=== PATIENT | female | born 1945 | race Caucasian/White ===

== ENCOUNTER → 2023-08-21 08:18 | Outpatient (REF) | payer MEDICARE, OTHER, SELFPAY ==
[2023-08-21 08:56] LABS: % Basophils 0.6 % (0-2); % Immature Granulocytes 0.4 % (0-0.5); % Lymphocytes 25.7 % (20.5-51.1); % Monocytes 9.3 % (1.7-9.3); Absolute Eosinophils 0.2 10^3/uL (0-0.7); Absolute Lymphocytes 1.4 10^3/uL (1.2-3.4); Absolute Monocytes 0.5 10^3/uL (0.1-0.6); Absolute Neutrophils 3.2 10^3/uL (1.4-6.5); Hemoglobin 14.2 g/dL (12.0-16.0); Mean Corp Hgb Conc. 34.6 g/dL (33.0-37.0); Mean Corpuscular Hgb 28.9 pg (27.0-31.0); Mean Corpuscular Volume 83.3 fL (81.0-99.0); Mean Platelet Volume 9.7 fL (7.4-10.4); Nucleated Red Blood Cells % 0 %; Platelet Count 285 10^3/uL (130-400); Red Blood Cell Count 4.92 10^6/uL (4.20-5.40); Red Cell Dist. Width 13.4 % (11.5-14.5); White Blood Cell Count 5.3 10^3/uL (4.8-10.8)
[2023-08-21 09:32] LABS: ALT (SGPT) 24 U/L (0-35); AST (SGOT) 28 U/L (14-36); Albumin 4.5 g/dl (3.5-5.0); Alkaline Phosphatase 66 U/L (38-126); Blood Urea Nitrogen 12 mg/dl (7-17); Calcium 9.5 mg/dl (8.4-10.2); Carbon Dioxide 24 mmol/L (22-30); Chloride 105 mmol/L (98-107); Glucose 97 mg/dl (70-99); HDL Cholesterol 96 mg/dl; LDL Cholesterol, Calculated 90 mg/dl; Sodium 137 mmol/L (135-145); Total Bilirubin 0.5 mg/dl (0.2-1.3); Total Cholesterol 202 mg/dl (50-199); Triglyceride 83 mg/dl (10-149); Very Low Density Lipoprotein 16 mg/dl (0-30); eGFR > 60.00
[2023-08-21 11:47] LABS: Glycohemoglobin (HgbA1c) 5.3 % (4.0-5.6)
== END ==
LOC: REG 08:18
PROVIDERS: ATTENDING PHYSICIAN Internal Medicine Cardiovascular Disease; FAMILY PHYSICIAN Nurse Practitioner Adult Health
DX: Z13.220 Encounter for screening for lipoid disorders (principal); K21.9 Gastro-esophageal reflux disease without esophagitis; R73.9 Hyperglycemia, unspecified; E87.1 Hypo-osmolality and hyponatremia; E78.00 Pure hypercholesterolemia, unspecified
CPT/HCPCS: 36415; 80053; 80061; 83036; 85025

== ENCOUNTER → 2023-08-26 13:52 | Outpatient (REF) | payer MEDICARE, OTHER, SELFPAY ==
[2023-08-26 14:14] LABS: % Basophils 0.5 % (0-2); % Eosinophils 2.4 % (0-6); % Immature Granulocytes 0.2 % (0-0.5); % Lymphocytes 23.9 % (20.5-51.1); % Monocytes 12.9 % (1.7-9.3); % Neutrophils 60.1 % (42.2-75.2); Absolute Eosinophils 0.2 10^3/uL (0-0.7); Absolute Lymphocytes 1.5 10^3/uL (1.2-3.4); Absolute Monocytes 0.8 10^3/uL (0.1-0.6); Absolute Neutrophils 3.7 10^3/uL (1.4-6.5); Hematocrit 40.8 % (37.0-47.0); Hemoglobin 13.8 g/dL (12.0-16.0); Mean Corp Hgb Conc. 33.8 g/dL (33.0-37.0); Mean Corpuscular Hgb 29.1 pg (27.0-31.0); Mean Corpuscular Volume 85.9 fL (81.0-99.0); Mean Platelet Volume 9.2 fL (7.4-10.4); Nucleated Red Blood Cells % 0 %; Platelet Count 304 10^3/uL (130-400); Red Blood Cell Count 4.75 10^6/uL (4.20-5.40); Red Cell Dist. Width 13.5 % (11.5-14.5); White Blood Cell Count 6.2 10^3/uL (4.8-10.8)
[2023-08-26 14:24] LABS: Erythrocyte Sed Rate 11 mm/hour (0-20)
[2023-08-26 14:40] LABS: ALT (SGPT) 22 U/L (0-35); AST (SGOT) 24 U/L (14-36); Albumin 4.3 g/dl (3.5-5.0); Alkaline Phosphatase 65 U/L (38-126); Blood Urea Nitrogen 19 mg/dl (7-17); Calcium 8.9 mg/dl (8.4-10.2); Carbon Dioxide 24 mmol/L (22-30); Chloride 103 mmol/L (98-107); Glucose 106 mg/dl (70-99); Magnesium 1.8 mg/dl (1.6-2.3); Potassium 3.5 mmol/L (3.5-5.1); Sodium 133 mmol/L (135-145); Total Bilirubin 0.3 mg/dl (0.2-1.3); Total Protein 6.6 g/dl (6.3-8.2); eGFR > 60.00
[2023-08-26 14:42] LABS: C-Reactive Protein < 5.00 mg/L (0.0-10.00)
[2023-08-26 15:11] LABS: TSH Reflex To Free T4 1.12 uIU/ml (0.47-4.68)
[2023-08-26 15:46] LABS: Folate 19.2 ng/ml (2.76-20)
[2023-08-26 17:48] LABS: Vitamin B12 961 pg/ml (239-931)
[2023-08-31 08:59] LABS: Vitamin B1, Whole Blood 143 nmol/L (70-180)
== END ==
LOC: REG 13:52
PROVIDERS: ATTENDING PHYSICIAN Nurse Practitioner Adult Health
DX: R41.3 Other amnesia (principal)
CPT/HCPCS: 36415; 80053; 82607; 82746; 83735; 84100; 84425; 84443; 85025; 85652; 86140

== ENCOUNTER → 2023-08-28 13:45 | Outpatient (REF) | payer MEDICARE, OTHER, SELFPAY ==
[2023-09-02 18:11] LABS: Calprotectin, Fecal 330 ug/g (<=49)
== END ==
LOC: REG 13:45
PROVIDERS: ATTENDING PHYSICIAN Internal Medicine
DX: R19.7 Diarrhea, unspecified (principal); K51.50 Left sided colitis without complications
CPT/HCPCS: 83993; 87045; 87046; 87077; 87324; 87427; 87449

== ENCOUNTER → 2023-09-26 10:29 | Outpatient (REF) | payer MEDICARE, OTHER, SELFPAY ==
[2023-09-26 12:30] LABS: Total Iron Binding Capacity 251 ug/dl (265-497)
[2023-09-26 13:00] LABS: Hepatitis B Surface Antigen Negative (Negative)
[2023-09-26 13:18] LABS: Hepatitis B Core Ab, Total Negative (Negative)
[2023-09-29 00:02] LABS: Vitamin D 1,25 Dihydroxy 62.4 pg/mL (19.9-79.3)
== END ==
LOC: REG 10:29
PROVIDERS: ATTENDING PHYSICIAN Internal Medicine; FAMILY PHYSICIAN Family Medicine
DX: K51.50 Left sided colitis without complications (principal)
CPT/HCPCS: 36415; 82652; 82728; 83550; 86704; 87340

== ENCOUNTER → 2023-09-29 14:25 | Outpatient (REF) | payer MEDICARE, OTHER, SELFPAY | LOC: PAVMRI 14:25 | PROVIDERS: ATTENDING PHYSICIAN Nurse Practitioner Adult Health | DX: R41.3 Other amnesia (principal); R26.89 Other abnormalities of gait and mobility | CPT/HCPCS: 70551 ==

== ENCOUNTER → 2023-10-07 15:06 | Outpatient (REF) | payer MEDICARE, OTHER, SELFPAY | LOC: WDC 15:06 | PROVIDERS: ATTENDING PHYSICIAN Nurse Practitioner Adult Health | DX: Z12.31 Encounter for screening mammogram for malignant neoplasm of breast (principal) | CPT/HCPCS: 77063; 77067 ==

== ENCOUNTER → 2023-11-10 12:12 | Outpatient (REF) | payer MEDICARE, OTHER, SELFPAY ==
[2023-11-10 13:31] LABS: ALT (SGPT) 16 U/L (0-35); AST (SGOT) 23 U/L (14-36); Albumin 4.6 g/dl (3.5-5.0); Alkaline Phosphatase 65 U/L (38-126); Blood Urea Nitrogen 19 mg/dl (7-17); Calcium 9.7 mg/dl (8.4-10.2); Carbon Dioxide 25 mmol/L (22-30); Chloride 98 mmol/L (98-107); Glucose 88 mg/dl (70-99); Sodium 133 mmol/L (135-145); Total Bilirubin 0.4 mg/dl (0.2-1.3); Total Protein 6.7 g/dl (6.3-8.2); eGFR > 60.00
[2023-11-10 13:46] LABS: Vitamin D, 25-OH*** 42.5 ng/mL (30-80)
== END ==
LOC: REG 12:12
PROVIDERS: ATTENDING PHYSICIAN Internal Medicine Rheumatology; FAMILY PHYSICIAN Family Medicine
DX: E55.9 Vitamin D deficiency, unspecified (principal); M81.0 Age-related osteoporosis without current pathological fracture
CPT/HCPCS: 36415; 80053; 82306

== ENCOUNTER → 2023-12-16 11:00 | Outpatient (REF) | payer MEDICARE, OTHER, SELFPAY | LOC: HWRAD 11:00 | PROVIDERS: ATTENDING PHYSICIAN Nurse Practitioner Adult Health; REFERRING PHYSICIAN Psychiatry & Neurology Neurology | DX: Z86.73 Personal history of transient ischemic attack (TIA), and cerebral infarction without residual deficits (principal); R41.3 Other amnesia; G45.9 Transient cerebral ischemic attack, unspecified | CPT/HCPCS: 93880 ==

== ENCOUNTER → 2024-02-04 15:53 | Outpatient (REF) | payer MEDICARE, OTHER, SELFPAY | LOC: RCS 15:53 | PROVIDERS: ATTENDING PHYSICIAN Nurse Practitioner Adult Health; REFERRING PHYSICIAN Psychiatry & Neurology Neurology | DX: R41.3 Other amnesia (principal); Z86.73 Personal history of transient ischemic attack (TIA), and cerebral infarction without residual deficits | CPT/HCPCS: 93306 ==

== ENCOUNTER → 2024-02-26 15:04 | Outpatient (REF) | payer MEDICARE, OTHER, SELFPAY | LOC: PAVMRI 15:04 | PROVIDERS: ATTENDING PHYSICIAN Psychiatry & Neurology Neurology; FAMILY PHYSICIAN Nurse Practitioner Adult Health | DX: M54.50 Low back pain, unspecified (principal) | CPT/HCPCS: 72148 ==

== ENCOUNTER → 2024-06-04 13:03 | Outpatient (REF) | payer MEDICARE, OTHER, SELFPAY ==
[2024-06-04 14:56] LABS: ALT (SGPT) 19 U/L (0-35); AST (SGOT) 26 U/L (14-36); Alkaline Phosphatase 55 U/L (38-126); Blood Urea Nitrogen 21 mg/dl (7-17); Calcium 9.6 mg/dl (8.4-10.2); Carbon Dioxide 24 mmol/L (22-30); Chloride 97 mmol/L (98-107); Glucose 88 mg/dl (70-99); Potassium 4.1 mmol/L (3.5-5.1); Sodium 132 mmol/L (135-145); Total Bilirubin 0.3 mg/dl (0.2-1.3); eGFR > 60.00
[2024-06-04 15:02] LABS: Albumin 4.8 g/dl (3.5-5.0)
[2024-06-04 15:07] LABS: Vitamin D, 25-OH*** 59.7 ng/mL (30-80)
== END ==
LOC: REG 13:03
PROVIDERS: ATTENDING PHYSICIAN Internal Medicine Rheumatology; FAMILY PHYSICIAN Nurse Practitioner Adult Health
DX: E55.9 Vitamin D deficiency, unspecified (principal); E87.1 Hypo-osmolality and hyponatremia; M81.0 Age-related osteoporosis without current pathological fracture
CPT/HCPCS: 36415; 80053; 82306

== ENCOUNTER → 2024-07-22 11:13 | Outpatient (REF) | payer MEDICARE, OTHER, SELFPAY ==
[2024-07-22 12:45] LABS: Erythrocyte Sed Rate 6 mm/hour (0-20)
[2024-07-22 12:49] LABS: C-Reactive Protein < 5.00 mg/L (0.0-10.00)
[2024-07-22 13:01] LABS: Total Iron Binding Capacity 265 ug/dl (265-497)
[2024-07-22 13:39] LABS: Vitamin B12 795 pg/ml (239-931)
[2024-07-22 19:17] LABS: Hepatitis B Surface Antigen Negative (Negative)
[2024-07-22 19:35] LABS: Hepatitis B Core Ab, Total Negative (Negative); Hepatitis B Surface Antibody Negative
== END ==
LOC: REG 11:13
PROVIDERS: ATTENDING PHYSICIAN Internal Medicine; FAMILY PHYSICIAN Nurse Practitioner Adult Health
DX: K51.50 Left sided colitis without complications (principal); R41.3 Other amnesia
CPT/HCPCS: 36415; 82607; 82652; 82728; 83550; 85652; 86140; 86704; 86706; 87340

== ENCOUNTER → 2024-07-27 11:55 | Outpatient (REF) | payer MEDICARE, OTHER, SELFPAY ==
[2024-07-29 19:32] LABS: Calprotectin, Fecal 179 ug/g (<=49)
== END ==
LOC: REG 11:55
PROVIDERS: ATTENDING PHYSICIAN Internal Medicine; FAMILY PHYSICIAN Nurse Practitioner Adult Health
DX: K51.50 Left sided colitis without complications (principal)
CPT/HCPCS: 83993

== ENCOUNTER → 2024-08-24 13:40 | Outpatient (REF) | payer MEDICARE, OTHER, SELFPAY ==
[2024-08-24 14:27] LABS: % Basophils 0.3 % (0-2); % Eosinophils 1.7 % (0-6); % Immature Granulocytes 0.3 % (0-0.5); % Lymphocytes 23.2 % (20.5-51.1); % Monocytes 8.8 % (1.7-9.3); % Neutrophils 65.7 % (42.2-75.2); Absolute Eosinophils 0.1 10^3/uL (0-0.7); Absolute Lymphocytes 1.5 10^3/uL (1.2-3.4); Absolute Monocytes 0.6 10^3/uL (0.1-0.6); Absolute Neutrophils 4.2 10^3/uL (1.4-6.5); Hematocrit 39.1 % (37.0-47.0); Hemoglobin 13.3 g/dL (12.0-16.0); Mean Corpuscular Volume 88.3 fL (81.0-99.0); Mean Platelet Volume 9.7 fL (7.4-10.4); Nucleated Red Blood Cells % 0 %; Platelet Count 266 10^3/uL (130-400); Red Blood Cell Count 4.43 10^6/uL (4.20-5.40); Red Cell Dist. Width 13.2 % (11.5-14.5); White Blood Cell Count 6.4 10^3/uL (4.8-10.8)
[2024-08-24 14:46] LABS: ALT (SGPT) 18 U/L (0-35); AST (SGOT) 24 U/L (14-36); Albumin 4.2 g/dl (3.5-5.0); Alkaline Phosphatase 63 U/L (38-126); Blood Urea Nitrogen 20 mg/dl (7-17); Calcium 9.6 mg/dl (8.4-10.2); Carbon Dioxide 24 mmol/L (22-30); Chloride 101 mmol/L (98-107); Glucose 88 mg/dl (70-99); HDL Cholesterol 82 mg/dl; LDL Cholesterol, Calculated 69 mg/dl; Potassium 4.2 mmol/L (3.5-5.1); Sodium 133 mmol/L (135-145); Total Bilirubin 0.5 mg/dl (0.2-1.3); Total Cholesterol 180 mg/dl (50-199); Total Protein 6.4 g/dl (6.3-8.2); Triglyceride 146 mg/dl (10-149); Very Low Density Lipoprotein 29 mg/dl (0-30); eGFR > 60.00
[2024-08-24 15:16] LABS: TSH Reflex To Free T4 1.56 uIU/ml (0.47-4.68)
[2024-08-25 09:19] LABS: Glycohemoglobin (HgbA1c) 5.2 % (4.0-5.6)
== END ==
LOC: REG 13:40
PROVIDERS: ATTENDING PHYSICIAN Nurse Practitioner Adult Health
DX: R53.83 Other fatigue (principal); R26.89 Other abnormalities of gait and mobility; E78.00 Pure hypercholesterolemia, unspecified; R73.9 Hyperglycemia, unspecified; R41.3 Other amnesia; E87.6 Hypokalemia
CPT/HCPCS: 36415; 80053; 80061; 83036; 84443; 85025

== ENCOUNTER 2024-09-13 06:30 | Day surgery (SDC) | payer MEDICARE, OTHER, SELFPAY | END 2024-09-13 11:16 | disposition home or self-care (01) | LOC: GI 06:30 | PROVIDERS: ATTENDING PHYSICIAN Internal Medicine | DX: Z12.11 Encounter for screening for malignant neoplasm of colon (principal); K51.50 Left sided colitis without complications; K64.9 Unspecified hemorrhoids; Q43.8 Other specified congenital malformations of intestine | CPT/HCPCS: 45380; 88305 ==

== ENCOUNTER → 2024-12-23 12:02 | Outpatient (REF) | payer MEDICARE, OTHER, SELFPAY ==
[2024-12-23 13:27] LABS: ALT (SGPT) 18 U/L (0-35); AST (SGOT) 24 U/L (14-36); Albumin 4.7 g/dl (3.5-5.0); Alkaline Phosphatase 56 U/L (38-126); Blood Urea Nitrogen 17 mg/dl (7-17); Calcium 9.2 mg/dl (8.4-10.2); Carbon Dioxide 23 mmol/L (22-30); Chloride 101 mmol/L (98-107); Glucose 86 mg/dl (70-99); Potassium 4.5 mmol/L (3.5-5.1); Sodium 132 mmol/L (135-145); Total Protein 6.9 g/dl (6.3-8.2); eGFR > 60.00
== END ==
LOC: REG 12:02
PROVIDERS: ATTENDING PHYSICIAN Physician Assistant; FAMILY PHYSICIAN Family Medicine
DX: M81.0 Age-related osteoporosis without current pathological fracture (principal); R26.89 Other abnormalities of gait and mobility; Z51.81 Encounter for therapeutic drug level monitoring
CPT/HCPCS: 36415; 80053

== ENCOUNTER → 2025-01-27 12:41 | Outpatient (REF) | payer MEDICARE, OTHER, SELFPAY | LOC: RAD 12:41 | PROVIDERS: ATTENDING PHYSICIAN Nurse Practitioner Adult Health | DX: Z78.0 Asymptomatic menopausal state (principal) | CPT/HCPCS: 77080 ==

== ENCOUNTER 2025-03-07 06:54 | Inpatient (IN) | payer MEDICARE, OTHER, SELFPAY ==
[2025-02-18 13:52] LABS: Hematocrit 38.7 % (37.0-47.0); Hemoglobin 13.2 g/dL (12.0-16.0); Mean Corp Hgb Conc. 34.1 g/dL (33.0-37.0); Mean Corpuscular Volume 87.2 fL (81.0-99.0); Platelet Count 282 10^3/uL (130-400); Red Cell Dist. Width 13.5 % (11.5-14.5)
[2025-02-18 14:28] LABS: ALT (SGPT) 18 U/L (0-35); AST (SGOT) 22 U/L (14-36); Albumin 4.5 g/dl (3.5-5.0); Alkaline Phosphatase 52 U/L (38-126); Blood Urea Nitrogen 23 mg/dl (7-17); Calcium 9.5 mg/dl (8.4-10.2); Carbon Dioxide 25 mmol/L (22-30); Chloride 103 mmol/L (98-107); Glucose 99 mg/dl (70-99); Potassium 4.4 mmol/L (3.5-5.1); Sodium 134 mmol/L (135-145); Total Protein 6.8 g/dl (6.3-8.2); eGFR > 60.00
[2025-02-19 12:20] LABS: Glycohemoglobin (HgbA1c) 5.2 % (4.0-5.6)
[2025-02-21 13:41] VITALS: BMI 22.3
--- NOTE | 2025-02-21 14:02 | CM ---
Demographics: confirmed
Living situation: Lives alone, her friend Nathalia will be staying with her
Support Person Post Operatively: Friend, Nathalia
History of
VN: no
SNF: no
Outpatient: Patient will make appointments at [facility]
Has patient purchased required equipment: walker, hip kit
PCP: Zaina ramirez
Pharmacy: [facility]
Post Operative Discharge Plan: [facility] for two weeks and then transition to outpatient PT. CM updated [facility] Admission RN.
--- NOTE | 2025-02-21 14:08 | VNURNOTE ---
Addendum entered by Monse Lennon RN 03/08/25 10:28:
Home Health Liaison met with patient at bedside to discuss [facility] nurse/therapy, visits, schedule. Patient is agreeable and understands that visits at home will be 2-3 x per week to assess and teach medical management. Patient is aware that [facility]
will contact them for start of care after discharge from . Provided contact number for [facility].
[facility] referral accepted in [facility].
Original Note:
Chart reviewed. Scheduled for L JEREMIAH on 03/07. Rec'ed update that pt ordered VN, PT, OT x 2 weeks post-op. [facility] referral placed in [facility]. Will follow up with pt post-op.
[2025-02-28 17:32] VITALS: BMI 22.3
[2025-03-07] VITALS (17 sets, daily range): BP systolic 114–153; BP diastolic 71–108; PULSE 90; O2SAT 94; BMI 22.3
[2025-03-07] MEDS: MOBIC 15 MG PO (08:20)
[2025-03-07] MEDS: TYLENOL 650 MG PO ×4 (08:21→19:40)
[2025-03-07] MEDS: NORMOSOL-R/PLASMALYTE-A 1000 IV ×2 (08:39→17:09)
--- NOTE | 2025-03-07 09:08 | W.PN.UPDATE ---
Update Note
Progress Note Update
L hip OA s/p L JEREMIAH w/ Dr Redding 03/07/25
DVT prophylaxis - ASA as OK per GI for short term course, b/l venous foot pumps
HTN - diet controlled - monitor BP
GERD and Hiatal hernia - continue PPI therapy
Ulcerative colitis, in remission while on Entyvio - no NSAIDs
- Given her gut-selective immunosuppressant, would benefit from Cefadroxil upon d/c
Recurrent C. 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
Ambulatory dysfunction with balance difficulties - on fall precautions
Right cerebellar stroke found incidentally on brain MRI 09/2023 - start full dose ASA for DVT prevention
- Of note, daily baby ASA recommended by PCP previously
Daily alcohol - 3 beers/daily reported
- Gabapentin, Thiamine, Folic Acid added
- Consider Serax HS
- Monitor for potential s/sx of withdrawal
HLD
Diverticulosis
Tortuous colon
Benign paroxysmal positional vertigo
Restless leg syndrome
Chronic short-term memory loss
Multilevel degenerative disc disease
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
Melanoma, left upper extremity, status post excision
Basal cell carcinoma, status post excision
Depression
Anxiety
Osteoporosis
Remote history of tobacco abuse
The patient will need home PT and VN services initially upon d/c. Pt discussed w/ CM pre-operatively.
[2025-03-07] MEDS: ROXICODONE 5 MG PO (11:53)
[2025-03-07] MEDS: TYLENOL PO ×2 (12:33→23:08)
[2025-03-07] MEDS: NEURONTIN 200 MG PO ×2 (15:59→21:03)
[2025-03-07] MEDS: ASPIRIN 325 MG PO (17:47)
[2025-03-07] MEDS: ANCEF 5 IV (17:47)
[2025-03-07] MEDS: REQUIP 2 MG PO (17:47)
[2025-03-07] MEDS: EFFEXOR XR PO (19:37)
[2025-03-07] MEDS: WELLBUTRIN XL (24 hour extended release) PO (19:39)
[2025-03-07] MEDS: BACTROBAN 2% OINTMENT 1 APPLIC NASAL (19:40)
[2025-03-07] MEDS: DECADRON 4 MG PO (19:40)
[2025-03-07] MEDS: VITAMIN B1 100 MG PO (19:40)
[2025-03-07] MEDS: COLACE 100 MG PO (19:40)
[2025-03-07] MEDS: PROTONIX 40 MG PO (19:40)
[2025-03-07] MEDS: LIPITOR 10 MG PO (21:03)
[2025-03-07] MEDS: FLORASTOR 250 MG PO (21:03)
[2025-03-07] MEDS: FOLVITE 1 MG PO (21:03)
[2025-03-08] MEDS: ANCEF 5 IV (00:29)
[2025-03-08] MEDS: TYLENOL 650 MG PO ×2 (03:31→08:01)
[2025-03-08 03:56] VITALS: BP 136/77
[2025-03-08 07:54] VITALS: BP 132/75
[2025-03-08] MEDS: ROXICODONE 5 MG PO (07:59)
[2025-03-08] MEDS: VITAMIN B1 100 MG PO (08:00)
[2025-03-08] MEDS: ASPIRIN 325 MG PO (08:00)
[2025-03-08] MEDS: EFFEXOR XR 75 MG PO (08:00)
[2025-03-08] MEDS: WELLBUTRIN XL (24 hour extended release) 150 MG PO (08:00)
[2025-03-08] MEDS: FOLVITE 1 MG PO (08:00)
[2025-03-08] MEDS: VITAMIN B-12 1000 MCG PO (08:00)
[2025-03-08] MEDS: FLORASTOR 250 MG PO (08:00)
[2025-03-08] MEDS: PROTONIX 40 MG PO (08:00)
[2025-03-08] MEDS: NEURONTIN 200 MG PO (08:00)
[2025-03-08] MEDS: DECADRON 4 MG PO (08:01)
[2025-03-08] MEDS: COLACE 100 MG PO (08:01)
[2025-03-08] MEDS: BACTROBAN 2% OINTMENT 1 APPLIC NASAL (08:01)
--- NOTE | 2025-03-08 08:52 | CM ---
CM reviewed medical records. Patient given IMM. Patient for [facility] for home PT. CM updated [facility] Admission RN.
PLAN: Home with [facility].
[2025-03-08 09:15] VITALS: BP 125/71; PULSE 85; O2SAT 97
--- NOTE | 2025-03-08 09:36 | W.PN.ORTHO ---
Today's Communication / Plan
-
Await PT and OT recs.
D/c later today if remaining clinically stable.
Assessment
.
Distal Motor Intact: Yes
Dressing:
Small area of old bleeding noted on inferior end of dressing. Dressing otherwise C/D/I.
Assessment:
L hip OA s/p L JEREMIAH w/ Dr Redding 03/07/25
DVT prophylaxis - ASA as OK per GI for short term course, b/l venous foot pumps
HTN - diet controlled - BPs overall stable
GERD and Hiatal hernia - continue PPI therapy
Ulcerative colitis, in remission while on Entyvio - no NSAIDs
- Given her gut-selective immunosuppressant, would benefit from Cefadroxil upon d/c
Recurrent C. 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
Ambulatory dysfunction with balance difficulties - on fall precautions
Right cerebellar stroke found incidentally on brain MRI 09/2023 - started full dose ASA for DVT prevention
- Of note, daily baby ASA recommended by PCP previously
Daily alcohol - 3 beers/daily reported
- Gabapentin, Thiamine, Folic Acid added
- Consider Serax HS
- No s/sx of withdrawal noted
HLD
Diverticulosis
Tortuous colon
Benign paroxysmal positional vertigo
Restless leg syndrome
Chronic short-term memory loss
Multilevel degenerative disc disease
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
Melanoma, left upper extremity, status post excision
Basal cell carcinoma, status post excision
Depression
Anxiety
Osteoporosis
Remote history of tobacco abuse
The patient will need home PT and VN services initially upon d/c. Pt discussed w/ CM pre-operatively
Plan
.
Surgery / Date: L hip OA s/p L JEREMIAH w/ Dr Redding 03/07/25
DVT Prophylaxis: Aspirin
Activity:
Out of bed.
PT/OT
Discharge Plan: Home w/ VN
Subjective
.
.:
Patient resting comfortably in her bed.
L hip pain well managed w/ minimal pain medications overnight.
Denies any new significant complaints.
Eager for potential d/c today.
Vital Signs and Labs
.
Vital Signs and Labs:
Lab Results
02/18/25 13:22
02/18/25 13:22
Temp Pulse Resp BP Pulse Ox
97.6 F 84 16 132/75 97
03/08/25 07:54 03/08/25 07:54 03/08/25 07:54 03/08/25 07:54 03/08/25 07:54
Non-invasive Hgb result: 13.3
Physical Exam
-
HEENT: No pallor, cyanosis, or jaundice. Throat clear.
NECK: Supple. No JVD.
RESPIRATORY: Lungs clear to auscultation.
CVS: S1, S2 normal. RRR.� No murmur, rub or gallop.
ABDOMEN: Soft, non-tender. No distension.
EXTREMITIES: Strength equal, no calf pain with palpation/dorsiflexion. Calves soft.
--- NOTE | 2025-03-08 09:45 | W.DS.TRANS ---
DC Summary - [facility] [employer] [facility]
-
Discharge Instructions:
Sleep Apnea Risk Low
Discharge Diagnosis/Procedures L hip OA s/p L JEREMIAH w/ Dr Redding 03/07/2025
Diet Regular
Additional Diets Adequate hydration, minimize opioids, and wear
TEDs stockings to prevent low blood pressure/
dizziness.
Activity As tolerated,With Walker
Driving Restrictions Not until seen by your Dr
Bathing Restrictions OK to Shower
Other Services PT,VN
Wound Care Dressing to be removed 1 week post-surgery.
[place] to be removed at 2 week follow-up with
surgeon's office.
Instructions:
Stand-Alone Forms: Total Hip/Knee Replacement D/C
Changes to Home Medications: Yes
Discharge Medications:
DC Medications w/original date entered in [employer]
cyanocobalamin (vitamin B-12) 1,000 mcg tablet 1,000 mcg PO DAILY 06/15/19
ropinirole 2 mg tablet 2 mg PO DAILY@1730 06/15/19
simvastatin 20 mg tablet 20 mg PO HS 06/15/19
bupropion HCl 150 mg 24 hr tablet, extended release 150 mg PO DAILY 02/17/25
calcium citrate 1,000 mg PO DAILY 02/17/25
denosumab 60 mg/mL subcutaneous syringe (Prolia) 60 mg SC [id number] 02/17/25
multivitamin with [id number] 400 mcg-120 mg tablet 1 tab PO DAILY 02/17/25
omeprazole 20 mg tablet,delayed release 20 mg PO DAILY 02/17/25
venlafaxine 75 mg capsule,extended release 24 hr (Effexor XR) 75 mg PO DAILY 02/17/25
vitamin E (dl, acetate) 180 mg (400 unit) capsule 180 mg PO Q48H 02/17/25
Held on 03/08/25. Instructions: Resume on 03/14/25.
mupirocin 2 % topical ointment 1 applic intranasal BID #1 tube 02/18/25
cefadroxil 500 mg capsule 500 mg PO BID #14 caps 02/22/25
dexamethasone 4 mg tablet 4 mg PO BID Anti-inflammatory #5 tabs 02/22/25
gabapentin 300 mg capsule 300 mg PO HS neuropathic pain/sleep #10 caps 02/22/25
ondansetron HCl 4 mg tablet 4 mg PO Q6H PRN nausea and vomiting #30 tabs 02/22/25
oxycodone 5 mg tablet 5 - 10 mg (1 - 2 x 5 mg) PO Q6H PRN moderate-severe pain #30 tabs 02/22/25
Saccharomyces boulardii 250 mg capsule 250 mg PO BID #14 caps 03/08/25
acetaminophen 500 mg tablet (Acetaminophen Extra Strength) 1,000 mg (2 x 500 mg) PO Q6H #60 tabs 03/08/25
aspirin 325 mg tablet 325 mg PO DAILY #30 tabs 03/08/25
docusate sodium 100 mg capsule 100 mg PO BID #30 caps 03/08/25
sennosides 8.6 mg tablet (Roxanne-kristi) 17.2 mg (2 x 8.6 mg) PO BID PRN constipation #30 tabs 03/08/25
Home Medication Changes
cefadroxil 500 mg capsule 500 mg PO BID #14 caps 02/22/25
dexamethasone 4 mg tablet 4 mg PO BID Anti-inflammatory #5 tabs 02/22/25
gabapentin 300 mg capsule 300 mg PO HS neuropathic pain/sleep #10 caps 02/22/25
ondansetron HCl 4 mg tablet 4 mg PO Q6H PRN nausea and vomiting #30 tabs 02/22/25
oxycodone 5 mg tablet 5 - 10 mg (1 - 2 x 5 mg) PO Q6H PRN moderate-severe pain #30 tabs 02/22/25
Saccharomyces boulardii 250 mg capsule 250 mg PO BID #14 caps 03/08/25
acetaminophen 500 mg tablet (Acetaminophen Extra Strength) 1,000 mg (2 x 500 mg) PO Q6H #60 tabs 03/08/25
aspirin 325 mg tablet 325 mg PO DAILY #30 tabs 03/08/25
docusate sodium 100 mg capsule 100 mg PO BID #30 caps 03/08/25
sennosides 8.6 mg tablet (Roxanne-kristi) 17.2 mg (2 x 8.6 mg) PO BID PRN constipation #30 tabs 03/08/25
Pending Results: No
[2025-03-08 10:28] VITALS: BP 144/81; PULSE 87
== END 2025-03-08 11:41 | disposition home health service (06) | DRG 470 ==
LOC: 2 SOUTH 06:54
PROVIDERS: ADMITTING PHYSICIAN Specialist; FAMILY PHYSICIAN Nurse Practitioner Adult Health
PROC: 0SRB04A Replacement of Left Hip Joint with Ceramic on Polyethylene Synthetic Substitute, Uncemented, Open Approach (ICD-10-PCS; 2025-03-07)
DX: M16.12 Unilateral primary osteoarthritis, left hip (principal); K51.90 Ulcerative colitis, unspecified, without complications; I10 Essential (primary) hypertension; K21.9 Gastro-esophageal reflux disease without esophagitis; E78.5 Hyperlipidemia, unspecified; K57.30 Diverticulosis of large intestine without perforation or abscess without bleeding; H81.10 Benign paroxysmal vertigo, unspecified ear; G25.81 Restless legs syndrome; Z87.891 Personal history of nicotine dependence; M81.0 Age-related osteoporosis without current pathological fracture; Z59.82 Transportation insecurity; Z86.73 Personal history of transient ischemic attack (TIA), and cerebral infarction without residual deficits
CPT/HCPCS: 36415; 73502; 80053; 83036; 85027; 87070; 93005; 97116; 97162; 97167; 97530; 97535; C1713; C1776

== ENCOUNTER 2025-03-08 19:42 | Emergency (ER) | payer MEDICARE, OTHER, SELFPAY ==
[2025-03-08 19:46] VITALS: BP 117/60
[2025-03-08 20:01] LABS: Hematocrit 32.5 % (37.0-47.0); Hemoglobin 10.8 g/dL (12.0-16.0); Mean Corp Hgb Conc. 33.2 g/dL (33.0-37.0); Mean Corpuscular Volume 88.6 fL (81.0-99.0); Nucleated Red Blood Cells % 0 %; Platelet Count 205 10^3/uL (130-400); Red Cell Dist. Width 13.5 % (11.5-14.5)
[2025-03-08 20:16] LABS: ALT (SGPT) 22 U/L (0-35); AST (SGOT) 45 U/L (14-36); Albumin 3.7 g/dl (3.5-5.0); Alkaline Phosphatase 53 U/L (38-126); Blood Urea Nitrogen 16 mg/dl (7-17); Calcium 8.6 mg/dl (8.4-10.2); Carbon Dioxide 25 mmol/L (22-30); Chloride 97 mmol/L (98-107); Glucose 160 mg/dl (70-99); Lipase 91 U/L (23-300); Potassium 4.0 mmol/L (3.5-5.1); Sodium 126 mmol/L (135-145); Total Protein 5.7 g/dl (6.3-8.2); eGFR > 60.00
[2025-03-08 20:27] LABS: Troponin I < 0.012 ng/ml
[2025-03-08 22:22] VITALS: BP 105/60
--- NOTE | 2025-03-08 22:33 | ED.GENMED ---
History of Present Illness
General
Chief Complaint: Fainting/Passed Out
Source: patient and family (Daughter)
Exam Limitations: none
Time Seen by Provider: 03/08/25 22:32
History of Present Illness
History of Present Illness:
79-year-old female had hip replacement surgery yesterday. Was on the toilet having abdominal cramps and diarrhea when she had a syncopal episode. No trauma. No chest pain or shortness of breath. She feels back to baseline now. She has had some
decreased p.o. intake today. She is doing well from a hip surgery standpoint.
Past History
Past History
ED Past Medical History: GERD and Other (Ulcerative colitis)
ED Past Surgical History: Appendectomy and Orthopedic
Social History
Tobacco: Non-smoker
Alcohol: None
Drug: None
Personal: Other (Noncontributory)
Living: with family
Employment: Retired
Family History
Family History: Other (Noncontributory)
Phy Exam
Physical Exam
Physical Exam:
GENERAL: Alert and oriented in no apparent distress
EYE: Orbits normal.
NECK: Supple, no significant adenopathy.
CARDIAC: Regular rate and rhythm without any obvious murmurs.
LUNGS: Clear breath sounds,normal
ABDOMEN: Soft, without focal tenderness or distention
NEUROLOGICAL: Alert and oriented , grossly non-focal
SKIN: Warm and dry, no rash or lesion, no discoloration, skin intact.
MUSCULOSKELETAL: No edema,no deformity.Good color. Bandage to the left lateral hip with mild edema but no warmth or drainage
PSYCH: Normal and appropriate interaction.
Course
Orders/Labs/Results
Orders:
Orders
03/08/25 19:49
Electrocardiogram (*1) Urgent
Reason for Study: Syncope
EKG- Treatment ONCE
03/08/25 19:53
Comprehensive Metabolic Panel Urgent
Lipase Urgent
03/08/25 19:54
Complete Blood Count/With Diff Urgent
Troponin I Urgent
03/08/25 22:49
CT Chest PE Study Urgent
Comment:
Reason For Exam: Syncope
Cardiac Monitoring- Treatment ONCE
IV Insert/Care/Rem.- Treatment PRN
0.9% Sodium Chloride 1000 ml [Nss] 1,000 ml IV BOLUS
Pulse Ox/cont/shift [RESP] Stat
Quantity: 1
03/08/25 23:03
BMP [Basic Metabolic Panel] Urgent
Abnormal Lab Results
03/08/25 03/08/25 03/08/25
19:53 19:54 23:03
RBC 3.67 L 10^6/uL
(4.20-5.40)
Hgb 10.8 L g/dL
(12.0-16.0)
Hct 32.5 L %
(37.0-47.0)
Absolute Neuts (auto) 9.1 H 10^3/uL
(1.4-6.5)
Absolute Lymphs (auto) 0.7 L 10^3/uL
(1.2-3.4)
Absolute Monos (auto) 1.0 H 10^3/uL
(0.1-0.6)
Neutrophils % 83.5 H %
(42.2-75.2)
Lymphocytes % 6.8 L %
(20.5-51.1)
Sodium 126 L mmol/L 129 L mmol/L
(135-145) (135-145)
Chloride 97 L mmol/L
(98-107)
BUN 18 H mg/dl
(7-17)
Glucose 160 H mg/dl 131 H mg/dl
(70-99) (70-99)
AST 45 H U/L
(14-36)
Total Protein 5.7 L g/dl
(6.3-8.2)
03/08/25 19:54
03/08/25 23:03
Vital Signs
Initial and Last Documented VS:
Initial Vital Signs
Temp Pulse Resp BP Pulse Ox
97.9 F 80 18 117/60 97
03/08/25 19:46 03/08/25 19:46 03/08/25 19:46 03/08/25 19:46 03/08/25 19:46
Last Documented Vital Signs
Temp Pulse Resp BP Pulse Ox
97.9 F 75 18 105/60 94
03/08/25 19:46 03/08/25 22:22 03/08/25 22:22 03/08/25 22:22 03/08/25 22:33
MDM/Problems Addressed
Differential Diagnosis Includes:
Patient describing vasovagal syncope. Occurred with crampy diarrhea. No preceding chest pain or shortness of breath. No current cardiac or pulmonary symptoms. Low suspicion for PE but with recent hip surgery will get a CT scan. Mild
hyponatremia. Will give fluids and reevaluate.
*Radiology
Radiology exam reviewed: radiology read reviewed (CT scan with no pulmonary emboli. Nodule in the left breast. Calcific coronary arteries. Bronchial inflammation. Pancreatic calcification)
*Pulse Oximetry
SaO2: 94
Oxygen Mode of Delivery: Room air
Patient hypoxic: no
*EKG
Interpreted by ED Provider?: Yes
Interpretation: abnormal
Comparison EKG: changes noted
Heart Rate: 74
Rate: normal
Rhythm: sinus
[place]: normal axis
Interval: normal interval
QRS Pattern: normal QRS
Ischemia: non-specific ST changes
*Critical Care Note
Total Time (30-74mins, 75-104mins- exclusive of procedures): Not Applicable
Data Reviewed
Review of Other/Old Records Reveals: Labs, Records and Testing
Update Note
Update Note:
Patient symptoms consistent with vasovagal syncope. Sodium is improved. Was given a copy of the CT report to follow-up with her primary physician various issues including coronary artery calcification, breast mass or nodule and pancreatic tail
nodule. Also will follow-up repeat sodium in 2 to 3 days.
ED Attending Note
-
Portions of this chart may have been created with voice recognition software.� Occasional wrong word or��sound alike� substitutions may have occurred due to the inherent limitations of voice recognition software.
Discharge Plan
Departure
Patient Disposition: Home (Routine Discharge)
Patient with high blood pressure during this ER visit?: No
Discharge Problem:
Syncope, Mild hyponatremia
Instructions: Syncope (Fainting) (DC), Hyponatremia
Prescriptions:
No Action
cyanocobalamin (vitamin B-12) 1,000 MCG tablet
1,000 mcg PO DAILY
ropinirole 2 MG tablet
2 mg PO DAILY@1730
simvastatin 20 MG tablet
20 mg PO HS
venlafaxine [Effexor XR] 75 mg Capsule,Extended Release 24hr
75 mg PO DAILY
bupropion HCl 150 mg Tablet Extended Release 24 Hr
150 mg PO DAILY
calcium citrate 250 mg calcium Tablet
1,000 mg PO DAILY
omeprazole 20 mg Tablet,Delayed Release (Dr/Ec)
20 mg PO DAILY
vitamin E (dl, acetate) 180 mg (400 unit) Capsule
180 mg PO Q48H
[id number] 400-120 mcg-mg Tablet
1 tab PO DAILY
Prolia 60 mg/mL Syringe
60 mg SC [id number]
mupirocin 2 % ointment
1 applic intranasal BID Qty: 1 0RF
Patient Comments:
applied this am 03/07/25
oxycodone 5 mg tablet
5 - 10 mg PO Q6H PRN (Reason: moderate-severe pain) Qty: 30 0RF
Patient Comments:
for post op
Rx Instructions:
1 tab for moderate pain, 2 if severe.
Dx total joint.
dexamethasone 4 mg tablet
4 mg PO BID Qty: 5 0RF
Patient Comments:
for postop
Rx Instructions:
Restart night of discharge and continue twice a day until finished.
Take with food.
gabapentin 300 mg capsule
300 mg PO HS Qty: 10 0RF
Patient Comments:
for post op
ondansetron HCl 4 mg tablet
4 mg PO Q6H PRN (Reason: nausea and vomiting) Qty: 30 0RF
Patient Comments:
for post op
cefadroxil 500 mg capsule
500 mg PO BID Qty: 14 0RF
Patient Comments:
for post op
Rx Instructions:
Start night of discharge and continue twice a day until finished.
Take with probiotic.
aspirin 325 mg Tablet
325 mg PO DAILY Qty: 30 0RF
Rx Instructions:
Take daily x4 weeks for blood clot prevention.
docusate sodium 100 mg Capsule
100 mg PO BID Qty: 30 0RF
Saccharomyces boulardii 250 mg Capsule
250 mg PO BID Qty: 14 0RF
Rx Instructions:
Over the counter. Take while on antibiotic.
If unavailable, choose a different probiotic.
sennosides [Roxanne-kristi] 8.6 mg Tablet
17.2 mg PO BID PRN (Reason: constipation) Qty: 30 0RF
Rx Instructions:
Add to bowel regimen of Colace if no bowel movement occurs within 48-72 hours post-surgery.
acetaminophen [Acetaminophen Extra Strength] 500 mg tablet
1,000 mg PO Q6H Qty: 60 0RF
Rx Instructions:
DO NOT exceed >4000 mg daily.
Referrals:
Cathy Santiago CRNP [Family Provider, Internal Medicine] - Follow up in 2-3 days
Activity Restrictions/Additional Instructions:
Recommend get your sodium repeated in 2 to 3 days
Follow-up the CT findings. Nodule in the left breast. Coronary artery calcification. Calcification of the pancreatic tail.
Interventions
Interventions:
*Risk Screen - Suicide Last Done: 03/08/25 19:49
*Neglect/Abuse Screening Last Done: 03/08/25 19:49
*Nursing Disposition Last Done: 03/09/25 01:55
ED- Cardiac Assessment Last Done: 03/08/25 22:22
ED- Neurological Assessment Last Done: 03/08/25 22:22
Discharge Date and Time
Discharge Date/Time: 03/09/25 01:55
Print Language: YAKUT
[2025-03-08] MEDS: NSS 1000 IV (22:58)
[2025-03-08 23:36] LABS: Blood Urea Nitrogen 18 mg/dl (7-17); Calcium 8.5 mg/dl (8.4-10.2); Carbon Dioxide 26 mmol/L (22-30); Chloride 99 mmol/L (98-107); Glucose 131 mg/dl (70-99); Potassium 4.4 mmol/L (3.5-5.1); Sodium 129 mmol/L (135-145); eGFR > 60.00
--- NOTE | 2025-03-09 02:19 | DOWNTIME ---
There was a [employer] Client [employer] Assistant Downtime on 03/09/2025 from 0100 to 03/09/2025 at 0215. Downtime documentation of patient's care, including medication administrations, has been reconciled in the electronic record per guidelines. Refer to the
patient's paper chart under the miscellaneous tab to see printed paper medication records and downtime forms.
== END 2025-03-09 01:55 | disposition home or self-care (01) ==
LOC: EMR 19:42
PROVIDERS: Emergency Medicine; EMERGENCY PHYSICIAN Emergency Medicine; FAMILY PHYSICIAN Nurse Practitioner Adult Health
DX: R55 Syncope and collapse (principal); E87.1 Hypo-osmolality and hyponatremia; Z90.49 Acquired absence of other specified parts of digestive tract
CPT/HCPCS: 96360; 99284; 71275; 80048; 80053; 83690; 84484; 85025; 93005; Q9967

== ENCOUNTER → 2025-03-10 12:06 | Outpatient (REF) | payer MEDICARE, OTHER, SELFPAY ==
[2025-03-10 13:18] LABS: Blood Urea Nitrogen 13 mg/dl (7-17); Calcium 8.9 mg/dl (8.4-10.2); Carbon Dioxide 23 mmol/L (22-30); Chloride 100 mmol/L (98-107); Glucose 144 mg/dl (70-99); Potassium 3.5 mmol/L (3.5-5.1); Sodium 132 mmol/L (135-145); eGFR > 60.00
== END ==
LOC: REG 12:06
PROVIDERS: ATTENDING PHYSICIAN Nurse Practitioner Adult Health
DX: E87.1 Hypo-osmolality and hyponatremia (principal)
CPT/HCPCS: 36415; 80048